=== PATIENT | female | born 1975 | race African-American/Black ===

== ENCOUNTER 2017-02-16 11:22 | Emergency (ER) | payer OTHER ==
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
== END 2017-02-16 11:48 | disposition home or self-care (01) ==
LOC: CFTX 11:22
DX: S46.912A Strain of unspecified muscle, fascia and tendon at shoulder and upper arm level, left arm, initial encounter (principal); S66.912A Strain of unspecified muscle, fascia and tendon at wrist and hand level, left hand, initial encounter; I10 Essential (primary) hypertension; M79.7 Fibromyalgia; Z88.2 Allergy status to sulfonamides; F17.210 Nicotine dependence, cigarettes, uncomplicated; V49.00XA Driver injured in collision with unspecified motor vehicles in nontraffic accident, initial encounter
CPT/HCPCS: 29125; 73030; 73100; 73130; 99284